=== PATIENT | female | born 1980 | race Caucasian/White ===

== ENCOUNTER 2017-04-27 18:47 | Emergency (ER) | payer OTHER ==
[~2017-04-27] VITALS: Ht 165.1 cm; Wt 81.6 kg
[2017-04-27] MEDS ORDERED: LEVOTHYROXINE PO (19:03)
--- NOTE | 2017-04-27 20:11 | NUR ---
Per , removed gauze from nostrils, placed nose clamp.
--- NOTE | 2017-04-27 20:59 | NUR ---
Removed nose clamp, no bleeding for 30 minutes.
--- NOTE | 2017-04-27 20:59 | NUR ---
Patient discharged to home in stable conditon. Written and verbal after care instructions given. Patient verbalizes understanding of instructions.
[2017-04-27 21:00] VITALS: BP 145/85
== END 2017-04-27 21:00 | disposition home or self-care (01) ==
LOC: ER 18:48
DX: R04.0 Epistaxis (principal); E03.9 Hypothyroidism, unspecified
CPT/HCPCS: 99283; A4663